=== PATIENT | male | born 1950 | race Caucasian/White ===

== ENCOUNTER 2018-04-11 15:25 | Inpatient (IN) | payer OTHER ==
[~2018-04-11] VITALS: Ht 177.8 cm; Wt 92.3 kg
[2018-04-11 15:44] VITALS: Ht 177.8 cm; Wt 92.3 kg
[2018-04-11 17:05] LABS: PLATELET COUNT 213 x10^3mcL (130-400); RED CELL DISTRIBUTION WIDTH 14.4 % (11.5-14.5)
[2018-04-11 17:33] LABS: CALCIUM 9.3 mg/dL (8.5-10.1); CARBON DIOXIDE 17.8 mmol/L (21-32); CREATININE SERUM 2.6 mg/dL (0.7-1.3); POTASSIUM SERUM 3.3 mmol/L (3.5-5.1)
[2018-04-11 17:38] LABS: ALBUMIN 2.6 g/dL (3.4-5.0); BILIRUBIN TOTAL 1.32 mg/dL (0.20-1.00); TOTAL PROTEIN, SERUM 7.7 g/dL (6.4-8.2)
[2018-04-11 17:46] LABS: microscopic required? YES
[2018-04-11 17:47] LABS: urine erythrocyte 3+ (NEGATIVE)
[2018-04-11 17:59] LABS: BAND NEUTROPHIL 20 % (0-10); BASOPHIL 0 % (0-2); MONOCYTE 7 % (0-7); SEGMENTED NEUTROPHILS 70 % (37-75)
[2018-04-11 18:00] LABS: PLATELET MORPHOLOGY PLATELETS NORMAL; rbc morphology (normal/abnorm) NORMAL (NORMAL)
[2018-04-11] MEDS ORDERED: IBUPROFEN400 MG PO (18:46)
[2018-04-11 19:46] VITALS: BP 104/62
[2018-04-11 20:30] LABS: MAGNESIUM 2.7 mg/dL (1.8-2.4); PHOSPHOROUS 2.1 mg/dL (2.5-4.9)
[2018-04-11 20:33] LABS: CHOLESTEROL/HDL RATIO 12.3
[2018-04-11 20:36] LABS: T3 TOTAL 0.88 ng/mL
[2018-04-11 20:41] LABS: FREE T4 1.35 ng/dL (0.76-1.46); FREE THYROXINE INDEX 2.7 ug/dL (1.4-4.5); T4(THYROXINE) 7.6 ug/dL (4.7-13.3)
[2018-04-12 05:35] VITALS: BP 104/66
[2018-04-12 07:05] LABS: CALCIUM 8.6 mg/dL (8.5-10.1); CARBON DIOXIDE 20.2 mmol/L (21-32); CREATININE SERUM 2.1 mg/dL (0.7-1.3); POTASSIUM SERUM 4.2 mmol/L (3.5-5.1)
[2018-04-12 07:12] LABS: BASOPHIL % 0.2 % (0-2); PLATELET COUNT 183 x10^3mcL (130-400); RED CELL DISTRIBUTION WIDTH 14.1 % (11.5-14.5)
[2018-04-12 08:02] LABS: AMPHETAMINE QUAL UR NONE DETECTED (See below)
[2018-04-12 09:20] VITALS: BP 139/68
[2018-04-12 17:23] VITALS: BP 124/53
[2018-04-12 20:59] VITALS: BP 139/55
[2018-04-13 05:44] VITALS: BP 122/62
[2018-04-13 06:36] LABS: PLATELET COUNT 212 x10^3mcL (130-400)
[2018-04-13 06:45] LABS: BASOPHIL % 0 % (0-2); RED CELL DISTRIBUTION WIDTH 14.9 % (11.5-14.5)
[2018-04-13 06:57] LABS: BILIRUBIN TOTAL 1.14 mg/dL (0.20-1.00); CALCIUM 8.9 mg/dL (8.5-10.1); CARBON DIOXIDE 16.6 mmol/L (21-32); CREATININE SERUM 1.9 mg/dL (0.7-1.3); POTASSIUM SERUM 5.1 mmol/L (3.5-5.1); TOTAL PROTEIN, SERUM 7.4 g/dL (6.4-8.2)
[2018-04-13 07:02] LABS: ALBUMIN 2.3 g/dL (3.4-5.0)
[2018-04-13 09:55] VITALS: BP 126/54
[2018-04-13 13:15] VITALS: BP 129/72
[2018-04-13 16:24] VITALS: BP 122/63
[2018-04-13 20:04] VITALS: BP 130/64
[2018-04-13 20:56] VITALS: BP 123/65
[2018-04-14 06:07] VITALS: BP 154/79
[2018-04-14 06:29] LABS: CALCIUM 8.8 mg/dL (8.5-10.1); CARBON DIOXIDE 15.5 mmol/L (21-32); CREATININE SERUM 1.6 mg/dL (0.7-1.3)
[2018-04-14 06:43] LABS: BASOPHIL % 0.2 % (0-2); PLATELET COUNT 208 x10^3mcL (130-400); RED CELL DISTRIBUTION WIDTH 15.5 % (11.5-14.5)
[2018-04-14 08:40] VITALS: BP 152/80
[2018-04-14 16:45] VITALS: BP 123/67
[2018-04-14 20:35] VITALS: BP 146/73
[2018-04-15 05:43] VITALS: BP 124/75
[2018-04-15 08:00] VITALS: BP 132/81
[2018-04-15 09:56] VITALS: BP 137/73
[2018-04-15 10:40] LABS: BASOPHIL % 0.4 % (0-2); PLATELET COUNT 203 x10^3mcL (130-400)
[2018-04-15 11:37] LABS: CALCIUM 8.4 mg/dL (8.5-10.1); CARBON DIOXIDE 19.5 mmol/L (21-32); CREATININE SERUM 1.3 mg/dL (0.7-1.3); POTASSIUM SERUM 4.1 mmol/L (3.5-5.1)
[2018-04-15 17:57] VITALS: BP 114/55
[2018-04-15 20:54] VITALS: BP 122/63
[2018-04-16 05:26] VITALS: BP 145/72
[2018-04-16 06:15] LABS: BASOPHIL % 0.4 % (0-2); PLATELET COUNT 229 x10^3mcL (130-400)
[2018-04-16 09:03] VITALS: BP 128/67
[2018-04-16 17:11] VITALS: BP 129/72
[2018-04-16 20:44] VITALS: BP 96/64
[2018-04-17 04:24] LABS: UA SPECIFIC GRAVITY 1.015 (1.005-1.035); microscopic required? YES; urine erythrocyte 2+ (NEGATIVE)
[2018-04-17 05:19] VITALS: BP 139/70
[2018-04-17 06:29] LABS: BASOPHIL % 0.3 % (0-2); PLATELET COUNT 248 x10^3mcL (130-400)
[2018-04-17 06:42] LABS: CALCIUM 8.9 mg/dL (8.5-10.1); CARBON DIOXIDE 19.4 mmol/L (21-32); CHLORIDE SERUM 111 mmol/L (98-107); CREATININE SERUM 1.1 mg/dL (0.7-1.3); GFR1 > 60 mL/min; GLUCOSE SERUM 99 mg/dL (74-106); POTASSIUM SERUM 3.6 mmol/L (3.5-5.1); SODIUM SERUM 143 mmol/L (136-145)
[2018-04-17 09:18] VITALS: BP 102/62
[2018-04-17 09:40] VITALS: BP 102/62
[2018-04-17] MEDS ORDERED: FOL1 PO (10:08)
[2018-04-17] MEDS ORDERED: THI100 PO (10:09)
[2018-04-17] MEDS ORDERED: PERCOCET1 TAB PO (10:10)
== END 2018-04-17 12:05 | disposition home or self-care (01) | DRG 438 ==
LOC: ED 15:25 → MU 18:50
PROVIDERS: Emergency Medicine; Family Medicine
DX: K85.20 Alcohol induced acute pancreatitis without necrosis or infection (principal); N17.0 Acute kidney failure with tubular necrosis; N39.0 Urinary tract infection, site not specified; E78.00 Pure hypercholesterolemia, unspecified; R74.0 Nonspecific elevation of levels of transaminase and lactic acid dehydrogenase [LDH]; E87.6 Hypokalemia; E83.41 Hypermagnesemia; R73.03 Prediabetes; F10.20 Alcohol dependence, uncomplicated; Z68.28 Body mass index [BMI] 28.0-28.9, adult; Z87.891 Personal history of nicotine dependence
CPT/HCPCS: 83880; 84153; 84439; 97110-GP; 97116-GP; 97530-GP; 97535-GP; C9113; G0480; J0696; J1885; J2270; J3490; J7030; Q0092

== ENCOUNTER 2018-08-08 17:43 | Emergency (ER) | payer OTHER ==
[~2018-08-08] VITALS: Ht 175.3 cm; Wt 86.2 kg
[~2018-08-08 17:43] MED LIST: FOL1 PO; IBUPROFEN400 MG PO; PERCOCET1 TAB PO; THI100 PO
[2018-08-08 17:56] VITALS: Ht 175.3 cm; Wt 86.2 kg
[2018-08-08 20:51] VITALS: BP 134/75
== END 2018-08-08 20:51 | disposition home or self-care (01) ==
LOC: ED 17:43
DX: Z45.2 Encounter for adjustment and management of vascular access device (principal); E78.00 Pure hypercholesterolemia, unspecified; Z98.890 Other specified postprocedural states; Z91.018 Allergy to other foods